=== PATIENT | female | born 1945 | race Caucasian/White ===

== ENCOUNTER 2023-03-18 08:08 | Outpatient (CLI) | payer MEDICARE, SELFPAY ==
[2023-03-18 09:22] LABS: Hematocrit 43.4 % (37.0-47.0); Hemoglobin 14.3 g/dL (12.0-15.0); Mean Corpuscular HGB Conc 32.9 g/dl (32-36); Mean Corpuscular Hemoglobin 31.7 pg (26-34); Mean Corpuscular Volume 96.2 fl (80-100); Mean Platelet Volume 9.4 fl (7.4-10.4); Platelet Count Result 242 k/mm3 (150-375); Red Blood Count 4.51 M/mm3 (4.2-5.4); Red Cell Distribution Width 12.3 % (11.5-14.5); White Blood Count 4.8 K/mm3 (4.5-10.0)
[2023-03-18 09:32] LABS: Alanine Aminotransferase 32 U/L (6-35); Albumin Level 4.5 g/dL (3.5-5.1); Alkaline Phosphatase 96 U/L (38-126); Anion Gap 7 mmol/L (8-16); Aspartate Amino Transferase 33 U/L (14-36); Bilirubin,Total 0.7 mg/dL (0.2-1.3); Blood Urea Nitrogen 18 mg/dL (7-17); Calcium 9.6 mg/dL (8.4-10.2); Carbon Dioxide 32 mmol/L (22-30); Chloride 98 mmol/L (98-107); Estimated Glomerular Filt Rate > 60; Glucose 94 mg/dL (65-110); Potassium 4.3 mmol/L (3.4-5.0); Sodium 137 mmol/L (137-145)
[2023-03-18 09:33] LABS: Cholesterol 165 mg/dL (0-200); HDL Direct 71 mg/dL; Magnesium 2.3 mg/dL (1.6-2.3); Triglycerides 73 mg/dL (<150)
[2023-03-18 09:44] LABS: LDL Cholesterol Direct 65 mg/dL
== END 2023-03-18 08:09 | disposition home or self-care (01) ==
PROVIDERS: PCP Family Medicine; Visit Provider Internal Medicine Cardiovascular Disease
DX: R53.83 Other fatigue (principal); E78.5 Hyperlipidemia, unspecified; I10 Essential (primary) hypertension; G45.9 Transient cerebral ischemic attack, unspecified
CPT/HCPCS: 36415; 80053; 80061; 83735; 84443; 85027

== ENCOUNTER 2023-04-09 09:38 | Outpatient (CLI) | payer MEDICARE, SELFPAY ==
--- NOTE | ~2023-04-09 | NM_ITS ---
EXAMINATION: NM khloe stress w perfusion DATE: 04/09/2023 13:09 INDICATION: Other forms of dyspnea TECHNIQUE: Rest images were obtained following intravenous administration of 8.8 mCi Tc99m tetrofosmi n (Myoview). The patient was infused intravenously with Lexiscan (Regadenoson). Then, 29 mCi Tc99m te trofosmin (Myoview) was administered intravenously, and stress images were obtained. Data was reconst ructed into short axis and horizontal and vertical long axis SPECT images. Gated SPECT images were al so obtained. COMPARISON: None. FINDINGS: There is no definite reversible or fixed perfusion abnormality to suggest ischemia or infar ction. There is normal left ventricular chamber size, wall motion and ejection fraction. Left ventr icular ejection fraction measures 66%. IMPRESSION: 1. Normal myocardial perfusion at rest and during stress. 2. Left ventricular ejection fraction measuring 66%. Reviewed, dictated and finalized at location A.
--- NOTE | 2023-04-09 10:38 | EST_ITS ---
Patient Info Name: Sahara Morel Age: 77 years : 1945 Gender: Female Ht: 64 in Wt: 143 lbs BSA: 1.72 m2 HR: 69 bpm BP: 156 / 77 mmHg Heart Rhythm: Sinus Rhythm Exam Date: 04/09/2023 10:51 AM Exam Location: [facility] Stress Patient Status: Outpatient Admit Date: 04/09/2023 Staff Ordering Physician: Connor Hoang DO Attending Provider: Connor Hoang DO Exercise Technologist: Pau Kyle CT Exercise Physician: Connor Hoang DO Exam Type: CA stress khloe w NM Study Info Indications R06.09 - Other forms of dyspnea A regadenoson stress test was performed. Summary 1. 1. Negative lexiscan stress test for ischemic ST changes by ECG criteria. 2. 2. Baseline hypertension. 3. 3. Nuclear scan to follow and will be reported separately. Please correlate with it. 4. 4. Patient informed of the above results. Protocol: Lexiscan Stress ECG Details Stage: REST Duration (min): 3 min : 20 sec HR (bpm): 69 SBP (mmHg): 156 DBP (mmHg): 77 Stage: REST Duration (min): 11 min : 44 sec HR (bpm): 71 SBP (mmHg): 156 DBP (mmHg): 77 Stage: STAGE 1 Duration (min): 1 min : 0 sec HR (bpm): 85 SBP (mmHg): 178 DBP (mmHg): 87 Stage: RECOVERY Duration (min): 1 min : 0 sec HR (bpm): 84 SBP (mmHg): 178 DBP (mmHg): 87 Stage: RECOVERY Duration (min): 2 min : 0 sec HR (bpm): 78 SBP (mmHg): 178 DBP (mmHg): 87 Stage: RECOVERY Duration (min): 3 min : 0 sec HR (bpm): 76 SBP (mmHg): 158 DBP (mmHg): 91 Stage: RECOVERY Duration (min): 3 min : 37 sec HR (bpm): 75 SBP (mmHg): 158 DBP (mmHg): 91 Rest HR: 71 bpm Peak HR: 87 bpm Rest Sys BP: 156 mmHg Peak Sys BP: 178 mmHg Max Pred HR: 141 bpm % Max Pred HR: 62 % Target HR: 120 bpm Max RPP: 15,486 bpm*mmHg Termination Reason: Completed protocol Cardiac Symptoms: Shortness of breath Total Time: 1 min : 0 sec Rest Swenson BP: 77 mmHg Peak Swenson BP: 87 mmHg Total Dose: 0.4 mg Resting ECG Sinus rhythm, frequent PVC's. Stress ECG No ST changes. Arrhythmias None. Report Signatures
== END 2023-04-09 09:39 | disposition home or self-care (01) ==
PROVIDERS: PCP Family Medicine; Visit Provider Internal Medicine Cardiovascular Disease
DX: R06.09 Other forms of dyspnea (principal)
CPT/HCPCS: 78452; 93017; A9502

== ENCOUNTER 2024-04-29 13:23 | Outpatient (CLI) | payer MEDICARE, SELFPAY ==
[2024-04-29 18:55] LABS: Alanine Aminotransferase 20 U/L (6-35); Albumin Level 4.4 g/dL (3.5-5.1); Alkaline Phosphatase 77 U/L (38-126); Anion Gap 6 mmol/L (4-12); Aspartate Amino Transferase 46 U/L (14-36); Bilirubin,Total 0.8 mg/dL (0.2-1.3); Blood Urea Nitrogen 18 mg/dL (7-17); Calcium 9.4 mg/dL (8.4-10.2); Carbon Dioxide 33 mmol/L (22-30); Chloride 96 mmol/L (98-107); Cholesterol 209 mg/dL (0-200); Estimated Glomerular Filt Rate > 60; Glucose 93 mg/dL (65-110); HDL Direct 69 mg/dL; Potassium 4.6 mmol/L (3.4-5.0); Sodium 135 mmol/L (137-145); Triglycerides 99 mg/dL (<150)
[2024-04-29 19:06] LABS: LDL Cholesterol Direct 93 mg/dL
== END 2024-04-29 13:24 | disposition home or self-care (01) ==
LOC: ANHBWCLAB 13:24
PROVIDERS: PCP Nurse Practitioner Adult Health; Visit Provider Nurse Practitioner Adult Health
DX: I10 Essential (primary) hypertension (principal)
CPT/HCPCS: 36415; 80053; 80061

== ENCOUNTER 2025-05-17 10:04 | Outpatient (CLI) | payer MEDICARE, SELFPAY ==
--- OUTSIDE RECORDS SUMMARY | 2025-05-17 10:46 | XMS_ITS | Clinical Summary ---
Author Organization [address] Address [address] [place] [address] Care Team Providers Care Supervisor Rolling Room Name Role Phone Michael Jarvis MD Primary Care Provider [phone] Allergies Active Allergy Reactions Criticality Noted Date Comments Aspirin Other (See comments) 09/26/2022 Bloodshot eyes Ciprofloxacin Swelling Medium 09/05/2017 Swelling of eyes and headache, itching of eyes Codeine Stomach upset Medium Reaction: GI UPSET, Tomato Hives Medium 08/07/2017 Medications aspirin 81 mg chewable tablet Take 1 tablet (81 mg total) by mouth daily 09/28/2022 Active metoprolol XL (TOPROL-XL) 25 mg extended release tablet Take 1 tablet (25 mg total) by mouth daily Active cyclobenzaprine (FLEXERIL) 10 mg tabletIndicatio ns:Spasm of thoracic back muscle Take 0.5 tablets (5 mg total) by mouth 3 (three) times a day as needed for muscle spasms 30 tablet 02/27/2025 Active naproxen (NAPROSYN) 375 mg tabletIndicatio ns:Acute midline thoracic back pain Take 1 tablet (375 mg total) by mouth 2 (two) times a day as needed for pain 30 tablet 02/27/2025 Active Active Problems Problem Noted Date Diagnosed Date COVID 04/24/2021 Encounters Date Type Department Care Team Description 02/28/2025 Results Follow-Up [facility] [address] [place] [address] Latonia Macario, SENIOR TECHNICAL SPECIALIST XR Spine Thoracic 3 Vw 02/27/2025 2:45 PM CDT - 02/27/2025 11:59 PM CDT Hospital Encounter [facility] [address] [place] [address] Acute midline thoracic back pain Discharge Disposition: Discharge to home or self care 02/27/2025 1:45 PM CDT Office Visit [facility] [place] [address] [place] [id number] Latonia Macario NP Acute midline thoracic back pain (Primary Dx); Spasm of thoracic back muscle 02/27/2025 - 02/27/2025 2:47 PM CDT Emergency [facility] [address] [place] [address] Discharge Disposition: ED Dismiss - Never Arrived from Last 3 Months Surgical History Surgery Date Site/Laterality Comments OTHER SURGICAL HISTORY TIA: Medical Management LOBECTOMY Medical History Medical History Date Comments Hx Other Medical TIA; Outcome: i mproved Cerebrovascular accident (CVA) (HCC) 05/22/2014 Stroke Social History Tobacco Use Types Packs/Day Years Used Date Smoking Tobacco: Never Tobacco Cessation:Counseling Given: Not Answered Comments Unknown Sex and Gender Information Value Date Recorded Sex Assigned at Not on file 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 Gender Identity Not on file Sexual Orientation Not on file Last Filed Vital Signs Vital Sign Reading Time Taken Comments Blood Pressure 130/76 02/27/2025 1:40 PM CDT Pulse 74 02/27/2025 1:40 PM CDT Temperature 36.1 C (97 F) 02/27/2025 1:40 PM CDT Respiratory Rate 19 02/27/2025 1:40 PM CDT Oxygen Saturation 96% 02/27/2025 1:40 PM CDT Inhaled Oxygen Concentration - - Weight 63.9 kg (140 lb 12.8 oz) 02/27/2025 1:40 PM CDT Height 162.6 cm (5' 4) 02/27/2025 1:40 PM CDT Body Mass Index 24.17 02/27/2025 1:40 PM CDT Plan of Treatment Health Maintenance Due Date Last Done Comments Depression Screening 1945 Osteoporosis Screening-Bone Density Scan 1945 DTaP/Tdap/Td Vaccine (1 - Tdap) 10/08/1954 Hepatitis B Screening 10/08/1961 Pneumococcal vaccine 65+ (1 of 1 - PCV) 10/08/1993 Zoster Vaccine (1 of 2) 10/08/1993 Well Visit 65+ 10/08/2008 Fall Risk Assessment 04/25/2022 04/25/2021 Influenza Vaccine (#1) 2025 Procedures Procedure Name Priority Date/Time Associated Diagnosis Comments XR SPINE THORACIC 3 VIEWS Schedule NIMA, Read NIMA (Appt Today, Awaiting Results) 02/27/2025 3:23 PM CDT Acute midline thoracic back pain from Last 3 Months Results * XR Spine Thoracic 3 Vw (02/27/2025 3:23 PM CDT) Anatomical Region Laterality Modality Spine N/A Computed Radiogr aphy 02/28/2025 12:3 0 AM CDT Narrative 02/28/2025 12:34 AM CDT EXAM DESCRIPTION: XR SPINE THORACIC 3 VIEWS REASON FOR STUDY: Back pain and spasm for 1 week. Midline tenderness around T10 level, rule out vertebral fracture Back pain and spasm for 1 week. Midline tenderness around T10 level, rule out vertebral fracture TECHNIQUE: Three radiographic views of the thoracic spine. COMPARISON: None. FINDINGS: ALIGNMENT: There is mild exaggeration of the normal thoracic kyphosis. VERTEBRAE: There is marked diffuse osteopenia. There is mild anterior wedge deformity of T9 and L1 of indeterminate age. There is diffuse facet arthropathy. DISCS: There is diffuse disc height loss with sclerosis of the endplates. SOFT TISSUES: No significant abnormalities seen. IMPRESSION: 1. Mild anterior wedge deformity of T9 and L1 of indeterminate age. If there is clinical concern for acute fracture, recommend further evaluation with CT or MRI. 2. Diffuse osteopenia. 3. Diffuse degenerative disc disease and facet arthropathy. THIS IS AN ELECTRONICALLY VERIFIED FINAL REPORT 02/28/2025 12:34 AM - Electronically signed by Faustina Maier M.D. SN: Report ID: [id number] Reading Location: [id number] Procedure Note Faustina Maier MD - 02/28/2025 EXAM DESCRIPTION: XR SPINE THORACIC 3 VIEWS REASON FOR STUDY: Back pain and spasm for 1 week. Midline tendernessaround T10 level, rule out vertebral fracture Back pain and spasm for 1 week. Midline tenderness around T10 level, ruleout vertebral fracture TECHNIQUE: Three radiographic views of the thoracic spine. COMPARISON: None. FINDINGS: ALIGNMENT: There is mild exaggeration of the normal thoracic kyphosis. VERTEBRAE: There is marked diffuse osteopenia. There is mild anteriorwedge deformity of T9 and L1 of indeterminate age. There is diffuse facet arthropathy. DISCS: There is diffuse disc height loss with sclerosis of the endplates. SOFT TISSUES: No significant abnormalities seen. IMPRESSION: 1. Mild anterior wedge deformity of T9 and L1 of indeterminate age. Ifthere is clinical concern for acute fracture, recommend further evaluation withCT or MRI. 2. Diffuse osteopenia. 3. Diffuse degenerative disc disease and facet arthropathy. THIS IS AN ELECTRONICALLY VERIFIED FINAL REPORT 02/28/2025 12:34 AM - Electronically signed by Faustina Maier M.D. SN: Report ID: [id number] Reading Location: [place] [address] Latonia Macario SENIOR TECHNICAL SPECIALIST IMG XR PROCEDURES Final Result from Last 3 Months Insurance MEDICARE ADVANTAGE [facility] [place] [address] Care Teams Supervisor Rolling Room Relationship Specialty Start Date End Date Michael Jarvis MD PCP - General Family Practice 04/24/21
--- OUTSIDE RECORDS SUMMARY | 2025-05-17 10:46 | XMS_ITS | Clinical Summary ---
Author Organization [facility] Address [address] [place] [address] Phone Care Team Providers Care Feather Baler Name Role Phone Michael Jarvis MD Primary Care Provider [phone] Nina Pitts APRN, OCCUPATIONAL THERAPIST PER DIEM Unavailable [phone] Allergies Active Allergy Reactions Criticality Noted Date Comments Aspirin Other (see Comments) 09/26/2022 Bloodshot eyes Ciprofloxacin Swelling 09/05/2017 Swelling of eyes and headache, itching of eyes Codeine Vomiting 08/07/2017 Tomato Hives 08/07/2017 Medications aspirin 81 MG Chewable Tablet Take 1 Tablet by mouth daily. 30 Tablet 3 Active atorvastatin (LIPITOR) 40 MG Tablet Take 1 Tablet by mouth daily. 90 Tablet 3 Active Additional Information Patient not taking.Reported on 11/17/2024 lisinopril (PRINIVIL, ZESTRIL) 5 MG Tablet Take 1 Tablet by mouth daily. 90 Tablet 1 3 Active metoprolol Succinate (TOPROL-XL) 25 MG TABLET SR 24 HR Take 25 mg by mouth daily. 3 Active olopatadine (Pataday) 0.2 % SolutionIndicat ions:Irritation of left eye 1 drop in the affected eye(s) daily as needed for itch and irritation. 1 Each 5 Active mupirocin (BACTROBAN) 2 % OintmentIndicat ions:Skin infection Apply thin film to back of neck 3 times daily until healed. 15 g 1 05/13/202 5 Active Active Problems Problem Noted Date Diagnosed Date Ischemic stroke 09/28/2022 Left-sided weakness 09/26/2022 Diverticulosis 09/26/2022 TIA (transient ischemic attack) 07/08/2013 Family History Medical History Relation Name Comments Diabetes Brother Cancer Mother uterine Kidney Disease Mother dialysis No Known Problems Sister Relation Name Status Comments Brother Alive Father unsure, maybe s troke? 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 file Not on file Not on edward e Last Filed Vital Signs Vital Sign Reading Time Taken Comments Blood Pressure 122/74 11/17/2024 9:35 AM CDT Pulse 67 11/17/2024 9:35 AM CDT Temperature 36.2 C (97.2 F) 11/17/2024 9:35 AM CDT Respiratory Rate 14 11/17/2024 9:35 AM CDT Oxygen Saturation 96% 11/17/2024 9:35 AM CDT Inhaled Oxygen Concentration - - Weight 68.1 kg (150 lb 1.6 oz) 07/09/2023 1:[address] LIGHT SERVICER HELPER Height 162.6 cm (5' 4) 07/09/2023 1:[address] LIGHT SERVICER HELPER Body Mass Index 25.76 07/09/2023 1:[address] LIGHT SERVICER HELPER Plan of Treatment Health Maintenance Due Date Last Done Comments DEXA Bone Density 1945 TdaP Immunization 1945 Pneumococcal Immunization (5 0+ years) (1 of 1 - PCV) 10/08/1993 Zoster Immunization (1 of 2) 10/08/1993 Medicare Initial AWV [id number] 10/06/2009 Respiratory Syncytial Virus (RSV) Immunization (Adult) (1 - 1-dose 75+ series) 10/08/2018 Influenza Immunization (#1) 2025 SARS-COV-2 Immunization ( - season) 2025 Hepatitis C Virus (HCV) Screening Completed 018 Hepatitis B Immunization Aged Out No longer eligible based on patient's age to complete this topic Human Papillomavirus (HPV) Immunization Aged Out No longer eligible b ased on patient's age to complete this topic Meningococcal Immunization (ACWY) Aged Out No longer eligible based on patient's age to complete this topic Rotavirus Immunization Aged Out No lo nger eligible based on patient's age to complete this topic Procedures Procedure Name Priority Date/Time Associated Diagnosis Comments HEPATITIS PANEL ACUTE (AHP) Routine 09/06/2017 7:[address] LIGHT SERVICER HELPER Elevated liver enzymes from Last 3 Months or Most Recently Relevant to Health Maintenance Results * HEPATITIS PANEL ACUTE (AHP) (09/06/2017 7:[address] LIGHT SERVICER HELPER) HEPATITIS A IGM ANTIBODY NON DETECTED NON DETECTED 09/06/2017 3:[address] LIGHT SERVICER [employer]PER [facility] Comment: IGM Antibodies to HAV not detected. Does not exclude early acute or recovered HAV infection. HEP B CORE AB (IGM) NON DETECTED NON DETECTED 09/06/2017 3:[address] LIGHT SERVICER [employer] [facility] Comment: IGM anti-HBC not detected. Does not exclude the possibility of exposure to or infection with HBV. HEPATITIS B SURFACE ANTIGEN NON DETECTED NON DETECTED 09/06/2017 3:[address] LIGHT SERVICER [facility] Comment: A nonreactive test result does not exclude the possibility of exposure to or infection with Hepatitis B virus. A nonreactive test result in individuals with prior exposure to hepatitis B may be due to antigen levels below the detection limit of this assay or lack of antigen reactivity to the antibodies in this assay. hepatitis C antibody 0.08 <1 S/CO 09/06/2017 3:[address] LIGHT SERVICER [employer] [facility] Comment: Signal/Cutoff ratio < 0.79 is Nondetected Signal/Cutoff ratio 0.80-0.99 is Grayzone Signal/Cutoff ratio > 0.99 is Detected Supplemental assays are recommended if signal/cutoff ratio is >/=1.00. Signal/cutoff ratio result >/= 5.00 is 97% predictive of positivity for recombinant immunoblot assay (RIBA) and will be reported to the [place] Department of Public [facility] as required. Blood specimen (specimen) Venipuncture / Unknown 09/06/2017 7:[address] LIGHT SERVICER HELPER 09/06/2017 8:[address] LIGHT SERVICER HELPER us Samantha Lawrence APRN, CONCRETE CONVEYOR OPERATOR HEMATOLOGY ORDERABLES Fi nal Result [facility] [address] [place] [address], [place] from Last 3 Months or Most Recently Relevant to Health Maintenance Insurance [facility]IC[facility] [place] [address] Advance Directives * Full Code (Latest Code Status on File) Date Activated Date Inactivated Comments 09/26/2022 4:20 PM 09/27/2022 5:00 PM CPR-Full Manas atment: FULL ARREST: Attempt Resuscitation/CPR wit intubation and mechanical ventilation. PRE-ARREST: Use entire range of life support measures to stabilize the patient. Care Teams Feather Baler Relationship Specialty Start Date End Date Michael Jarvis MD PCP - General Family Medicine 09/27/22 Nina Pitts APRN, OCCUPATIONAL THERAPIST PER DIEM [address] [place] [address] Nurse Practitioner Advanced Practice Nurse 10/05/22
[2025-05-17 18:48] LABS: Hematocrit 40.8 % (37.0-47.0); Hemoglobin 13.9 g/dL (12.0-15.0); Immature Granulocyte Percent A 0.0 % (0-0.5); Lymphocytes Absolute Auto 0.94 K/mm3 (0.9-3.2); Mean Corpuscular HGB Conc 34.1 g/dl (32-36); Mean Corpuscular Hemoglobin 32.9 pg (26-34); Mean Corpuscular Volume 96.7 fl (80-100); Nucleated Red Blood Cells Absolute Auto 0.000 K/mm3 (0.0-0.012); Nucleated Red Blood Cells Perc 0.0 % (0.0-0.2); Platelet Count Result 173 k/mm3 (150-375); Red Blood Count 4.22 M/mm3 (4.2-5.4); White Blood Count 4.0 K/mm3 (4.5-10.0)
[2025-05-17 19:00] LABS: Alanine Aminotransferase 22 U/L (6-35); Albumin Level 4.4 g/dL (3.5-5.1); Alkaline Phosphatase 100 U/L (38-126); Anion Gap 4 mmol/L (4-12); Aspartate Amino Transferase 58 U/L (14-36); Bilirubin,Total 0.8 mg/dL (0.2-1.3); Blood Urea Nitrogen 13 mg/dL (7-17); Calcium 9.3 mg/dL (8.4-10.2); Carbon Dioxide 32 mmol/L (22-30); Chloride 99 mmol/L (98-107); Estimated Glomerular Filt Rate > 60; Glucose 89 mg/dL (65-110); Potassium 5.3 mmol/L (3.4-5.0); Sodium 135 mmol/L (137-145); Total Protein 7.0 g/dL (6.3-8.2)
== END 2025-05-17 10:05 | disposition home or self-care (01) ==
PROVIDERS: PCP Nurse Practitioner Adult Health; Visit Provider Nurse Practitioner Adult Health
DX: I10 Essential (primary) hypertension (principal)
CPT/HCPCS: 36415; 80053; 85025